=== PATIENT | male | born 1965 | race Caucasian/White ===

== ENCOUNTER 2016-08-06 12:18 | Emergency (ER) | payer OTHER ==
[2016-08-06 14:28] VITALS: BP 138/78
--- NOTE | 2016-08-06 15:11 | UC ---
Back Pain HPI - HPI Summary HPI Summary: LEFT MID BACK PAIN X 1 DAY INJURY TO HIS MID BACK YESTERDAY HE WAS LIFTING HIS SON - History of Current Complaint Chief Complaint: UCBackPain Stated Complaint: BACK INJURY Time Seen by Provider: 08/06/16 14:52 Hx Obtained From: Patient Onset/Duration: Sudden Onset, Lasting Days - 1, Still Present Timing: Constant Severity Initially: Moderate Severity Currently: Moderate Back Pain: Is Discrete @ - LEFT MID BACK Character: Spasmodic, Stiffness Aggravating: Movement, Bending, Cough Alleviating: Rest Associated Signs And Symptoms: Negative: Swelling, Redness, Bruising, Fever, Weakness, Numbness, Tingling, Abdominal Pain, Flank Pain, Bladder Incontinence, Bowel Incontinence - Allergies/Home Medications Allergies/Adverse Reactions: Allergies Allergy/AdvReac Type Severity Reaction Status Date / Time Penicillins [PCN] Allergy Rash Verified 08/06/16 14:27 Home Medications: Home Medications Ibuprofen TAB* [Advil TAB*] 400 mg PO Q6H PRN 08/06/16 [History Confirmed ] diPHENhydraMINE PO* [Benadryl PO*] 25 mg PO BEDTIME PRN 08/06/16 [History Confirmed 08/06/16] PMH/Surg Hx/FS Hx/Imm Hx Previously Healthy: Yes - Surgical History Surgical History: None - Family History Known Family History: Negative: Diabetes - Social History Alcohol Use: Weekly Alcohol Amount: weekends Substance Use Type: None Smoking Status (MU): Never Smoked Tobacco Review of Systems Constitutional: Negative Skin: Negative Eyes: Negative ENT: Negative Respiratory: Negative Cardiovascular: Negative All Other Systems Reviewed And Are Negative: Yes Physical Exam Triage Information Reviewed: Yes Appearance: Well-Appearing, No Pain Distress, Well-Nourished Vital Signs: Initial Vital Signs Temp 98.6 F 08/06/16 14:23 Pulse 58 08/06/16 14:23 Resp 14 08/06/16 14:23 BP 138/78 08/06/16 14:23 Pulse Ox 99 08/06/16 14:23 Vital Signs Reviewed: Yes Eyes: Positive: Conjunctiva Clear ENT: Positive: Normal ENT inspection, Hearing grossly normal, Pharynx normal, Pharyngeal erythema Neck: Positive: Supple, Nontender, No Lymphadenopathy Respiratory Exam: Normal Respiratory: Positive: Chest non-tender, Lungs clear, Normal breath sounds, No respiratory distress Cardiovascular: Positive: RRR, No Murmur, Pulses Normal Abdominal Exam: Normal Musculoskeletal: Positive: Strength Intact, ROM Intact, No Edema, Other: - BACK EXAM : NO SWELLING, NO ERYTHEMA , NO MUSCLE SPASM , + TENDERNESS LEFT MID BACK , PAIN WITH ANY ROM Back Pain Course/Dx - Differential Dx/Diagnosis Provider Diagnoses: MID BACK STRAIN Discharge - Discharge Plan Condition: Stable Disposition: HOME Prescriptions: Cyclobenzaprine TAB* [Flexeril TAB*] 10 mg PO BID #20 tab Naproxen [Naproxen 500 MG TABS] 500 mg PO BID #20 tab Patient Education Materials: Thoracic Back Strain (ED) Forms: *Work Release Referrals: No Primary Care Phys,NOPCP [Primary Care Provider] -
== END 2016-08-06 15:28 | disposition home or self-care (01) ==
LOC: UCCORT 12:18
DX: S29.012A Strain of muscle and tendon of back wall of thorax, initial encounter (principal); X58.XXXA Exposure to other specified factors, initial encounter; Y93.F2 Activity, caregiving, lifting; Y92.9 Unspecified place or not applicable; Z88.0 Allergy status to penicillin
CPT/HCPCS: 99202; G0463

== ENCOUNTER 2019-08-03 14:18 | Emergency (ER) | payer OTHER ==
[2019-08-03 15:16] VITALS: BP 136/74
--- NOTE | 2019-08-03 15:34 | UC ---
Respiratory Complaint HPI - HPI Summary HPI Summary: Ill for about 10 days with cold symptoms and cough which will "just not go away ". - History of Current Complaint Chief Complaint: UCRespiratory Stated Complaint: COUGH Time Seen by Provider: 08/03/19 15:34 Hx Obtained From: Patient Onset/Duration: Gradual Onset Timing: Intermittent Episodes Severity Initially: Mild Severity Currently: Mild Pain Intensity: 0 Character: Cough: Productive - Occasional yellow sputum Aggravating Factors: Deep Breaths Alleviating Factors: Nothing Associated Signs And Symptoms: Positive: Wheezing, URI, Nasal Congestion - Allergies/Home Medications Allergies/Adverse Reactions: Allergies Allergy/AdvReac Type Severity Reaction Status Date / Time Penicillins Allergy Rash Verified 08/03/19 15:17 PMH/Surg Hx/FS Hx/Imm Hx Previously Healthy: Yes - Surgical History Surgical History: None - Family History Known Family History: Negative: Diabetes - Social History Lives: With Family Alcohol Use: Weekly Alcohol Amount: weekends Substance Use Type: None Smoking Status (MU): Never Smoked Tobacco Review of Systems All Other Systems Reviewed And Are Negative: Yes Respiratory: Positive: Cough - Tight cough with wheezing. Negative: Shortness Of Breath Is Patient Immunocompromised?: No Physical Exam Triage Information Reviewed: Yes Appearance: Well-Appearing, No Pain Distress, Well-Nourished Vital Signs: Initial Vital Signs Temp 98.4 F 08/03/19 15:12 Pulse 59 08/03/19 15:12 Resp 16 08/03/19 15:12 BP 136/74 08/03/19 15:12 Pulse Ox 96 08/03/19 15:12 Vital Signs Reviewed: Yes Eyes: Positive: Conjunctiva Clear ENT: Positive: Pharynx normal, TMs normal, Uvula midline. Negative: Sinus tenderness Neck: Positive: Supple, Nontender, No Lymphadenopathy Respiratory: Positive: No respiratory distress, No accessory muscle use, Rhonchi , Wheezing - Scattered rhonchi and wheezing, no distress Cardiovascular: Positive: RRR, No Murmur, Pulses Normal, Brisk Capillary Refill Musculoskeletal Exam: Normal Neurological Exam: Normal Psychological Exam: Normal Skin Exam: Normal Respiratory Course/Dx - Course Course Of Treatment: Duoneb treatment: Increased aeration, very little wheezing, mild rhonchi, pt feeling much better and he can take a deep breath without coughing. CXR: Negative - Differential Dx/Diagnosis Provider Diagnosis: Bronchitis Discharge ED - Sign-Out/Discharge Documenting (check all that apply): Patient Departure All imaging exams completed and their final reports reviewed: Yes - Discharge Plan Condition: Good Disposition: HOME Prescriptions: predniSONE 10 mg TAB [Deltasone 10 MG TAB*] 10 mg PO DAILY 11 Days #26 tab Patient Education Materials: Acute Bronchitis (ED) Referrals: [facility] [Outside] No Primary Care Phys,NOPCP [Primary Care Provider] - Additional Instructions: Increase fluids, take the Prednisone with foods, follow up at [facility] in 4-5 days if no improvement - Billing Disposition and Condition Condition: GOOD Disposition: Home
[2019-08-03] MEDS ORDERED: Albuterol/Ipratropium NEB.SOL* Albuterol 2.5 MG/Ipratropium 0.5 MG 3 ML INH ONE (15:40)
== END 2019-08-03 17:20 | disposition home or self-care (01) ==
LOC: UCCORT 14:18
DX: J40 Bronchitis, not specified as acute or chronic (principal); Z88.0 Allergy status to penicillin
CPT/HCPCS: 71046; 99212; A9270-GY; G0463; J7512